=== PATIENT | male | born 1980 | race African-American/Black ===

== ENCOUNTER 2024-08-03 19:14 | Inpatient (IN) | payer OTHER, MEDICAID ==
[~2024-08-03] VITALS: Ht 193 cm; Wt 99.9 kg
[2024-08-03 19:53] LABS: BASOPHILS % 0.3 % (0.0-2.0); EOSINOPHILS % 1.4 % (0.0-5.0); HEMATOCRIT. 32.8 % (42.0-52.0); LYMPHOCYTES % 20.6 % (20.0-50.0); MEAN CORPUSCULAR HEMOGLOBIN 30.8 pg (28.0-32.0); MEAN CORPUSCULAR HGB CONC 33.5 g/dL (31.0-37.0); MEAN PLATELET VOLUME 7.4 fl (7.4-10.4); MONOCYTES % 5.8 % (2.0-8.0); NEUTROPHILS % 71.9 % (40.0-76.0); PLATELET 361 x1000/uL (130-400); RED BLOOD CELL COUNT 3.56 mill/uL (4.7-6.1); RED CELL DISTRIBUTION WIDTH 13.7 % (11.6-14.6); WHITE BLOOD COUNT 8.2 x1000/uL (4.5-11.0)
[2024-08-03 19:54] LABS: CHLORIDE 105 mEq/L (98-107); POTASSIUM 3.7 mEq/L (3.5-5.1); SODIUM 136 mEq/L (136-145)
[2024-08-03 19:55] LABS: CALCIUM 8.8 mg/dL (8.7-10.4); CARBON DIOXIDE 22 mEq/L (21-32)
[2024-08-03 20:00] LABS: UREA NITROGEN BLOOD < 5 mg/dL (9-23)
[2024-08-03 20:26] LABS: GLUCOSE 477 mg/dL (70-105); TROPONIN I HIGH SENSITIVITY < 4 ng/L (3.0-53)
[2024-08-03 23:11] LABS: ALANINE AMINOTRANSFERASE 10 IU/L (10-49); ALBUMIN 3.7 g/dL (3.2-4.8); ASPARTATE AMINOTRANSFERASE 12 IU/L (<34); BILIRUBIN DIRECT < 0.1 mg/dL (<=3.0); BILIRUBIN TOTAL 0.2 mg/dL (0.1-1.0); PROTEIN TOTAL 6.2 g/dL (6.0-8.3)
[2024-08-03] MEDS: HYDROCODONE/ACETAMINOPHEN 5/325MG TABLET PO ONE (23:18)
[2024-08-03] MEDS ORDERED: OCTREOTIDE 1,000 MCG in SODIUM CHLORIDE 0.9% 98 ML IV SCH (23:30)
[2024-08-04 00:16] LABS: PROTHROMBIN TIME 11.2 sec (9.6-11.0)
[2024-08-04] MEDS ORDERED: CLONIDINE 0.1MG TABLET PO PRN (00:45)
[2024-08-04] MEDS: CEFTRIAXONE 1GM/50ML 50 ML IV ONE (00:45)
[2024-08-04] MEDS ORDERED: DEXTROSE 50% WATER 50ML SYRINGE IV PRN (00:45)
[2024-08-04] MEDS ORDERED: IPRATROPIUM/ALBUTEROL 0.5-3(2.5)MG/3ML NEB HHN PRN (00:45)
[2024-08-04] MEDS ORDERED: DOCUSATE SODIUM 100MG CAPSULE PO PRN (00:45)
[2024-08-04] MEDS ORDERED: GUAIFENESIN 200MG/10ML SUGAR FREE UDC PO PRN (00:45)
[2024-08-04] MEDS ORDERED: ACETAMINOPHEN 325MG TABLET PO PRN ×2 (00:45)
[2024-08-04] MEDS ORDERED: ONDANSETRON HCL 4MG/2ML INJ IV PRN (00:45)
[2024-08-04] MEDS ORDERED: LORAZEPAM 2MG/ML INJ IV PRN (00:45)
[2024-08-04] MEDS: ONDANSETRON HCL 4MG/2ML INJ IV ONE (00:46)
[2024-08-04] MEDS: SODIUM CHLORIDE 0.9% 1,000 ML IV ONE ×2 (00:46→15:52)
[2024-08-04] MEDS: MORPHINE SULFATE 2 MG/ML INJ (NOT FOR IM USE) IV ONE (00:47)
[2024-08-04 01:35] LABS: PHOSPHORUS 2.3 mg/dL (2.5-4.9)
[2024-08-04] MEDS: INSULIN LISPRO 100 UNITS/ML SUBCUT ONE (01:49)
[2024-08-04] MEDS: INSULIN LISPRO 100 UNITS/ML SUBCUT NR (02:44)
[2024-08-04] MEDS: HYDROCODONE/ACETAMINOPHEN 5/325MG TABLET PO PRN (02:52)
[2024-08-04 03:31] VITALS: BP 143/104; PULSE 63; RESP 19; TEMP 36.3
[2024-08-04 04:00] VITALS: BP 111/72; PULSE 65; RESP 20; TEMP 36.2; O2SAT 100
[2024-08-04] MEDS: MVI, ADULT NO.1 10 ML, FOLIC ACID 1 MG, THIAMINE HCL 100 MG in SODIUM CHLORIDE 0.9% 1,0... IV SCH (04:45)
[2024-08-04 05:52] LABS: CLARITY URINE CLEAR (CLEAR); COLOR URINE YELLOW (YELLOW); GLUCOSE URINE 3+ (NEGATIVE); KETONES URINE NEGATIVE (NEGATIVE); LEUKOCYTE ESTERASE URINE NEGATIVE (NEGATIVE); NITRITE URINE NEGATIVE (NEGATIVE); OCCULT BLOOD URINE NEGATIVE (NEGATIVE); PROTEIN URINE NEGATIVE (NEGATIVE); SPECIFIC GRAVITY URINE 1.053 (1.005-1.030); UROBILINOGEN URINE 0.2 E.U./dL (0.2-1.0)
[2024-08-04 06:36] LABS: *AMPHETAMINES SCREEN URINE NEGATIVE (NEGATIVE); *BARBITURATES SCREEN URINE NEGATIVE (NEGATIVE); *BENZODIAZEPINES SCREEN URINE PRESUMPTIVE POSITIVE (NEGATIVE); *COCAINE SCREEN URINE NEGATIVE (NEGATIVE); METHADONE URINE SCREEN NEGATIVE (NEGATIVE)
[2024-08-04 06:37] LABS: CANNABINOID URINE SCREEN NEGATIVE (NEGATIVE); ECSTASY MDMA SCREEN URINE NEGATIVE (NEGATIVE); OPIATES URINE SCREEN PRESUMPTIVE POSITIVE (NEGATIVE); PHENCYCLIDINE URINE SCREEN NEGATIVE (NEGATIVE); WBC URINE 0-2 /hpf (0-2)
[2024-08-04 06:38] LABS: BACTERIA URINE NONE SEEN; RBC URINE 0-2 /hpf (0-2); SQUAMOUS EPITHELIAL CELL URINE NONE SEEN /lpf (RARE/1+)
[2024-08-04] MEDS: BLOOD SUGAR DIAGNOSTIC STRIP TEST SCH (06:47)
[2024-08-04 07:25] LABS: HEMATOCRIT 30.9 % (42.0-52.0); HEMOGLOBIN 10.6 g/dL (14.0-18.0); MEAN CORPUSCULAR HEMOGLOBIN 31.6 pg (28.0-32.0); MEAN CORPUSCULAR HGB CONC 34.3 g/dL (31.0-37.0); MEAN CORPUSCULAR VOLUME 92.2 fL (80.0-94.0); PLATELET 337 x1000/uL (130-400); RED BLOOD CELL COUNT 3.35 mill/uL (4.7-6.1); RED CELL DISTRIBUTION WIDTH 13.9 % (11.6-14.6); WHITE BLOOD COUNT 7.8 x1000/uL (4.5-11.0)
[2024-08-04 08:00] VITALS: BP 121/72; PULSE 65; RESP 16; TEMP 36.6; O2SAT 95
[2024-08-04] MEDS: INSULIN LISPRO 100 UNITS/ML SUBCUT SCH (08:10)
[2024-08-04] MEDS: PANTOPRAZOLE SODIUM 40 MG/VIAL IV SCH (11:17)
[2024-08-04 12:00] VITALS: BP 120/81; PULSE 62; RESP 16; TEMP 36.6; O2SAT 95
[2024-08-04] MEDS: MORPHINE SULFATE 2 MG/ML INJ (NOT FOR IM USE) IV NR ×2 (13:02→21:15)
[2024-08-04] MEDS ORDERED: DEXT 5%/0.9% NACL 1,000 ML IV SCH (14:30)
[2024-08-04 16:00] VITALS: BP 119/73; PULSE 63; RESP 16; TEMP 36.6; O2SAT 98
[2024-08-04] MEDS: SUCRALFATE 1G TABLET PO SCH (17:15)
[2024-08-04 20:00] VITALS: BP 117/76; PULSE 64; RESP 20; TEMP 36.3; O2SAT 96
[2024-08-05] VITALS (8 sets, daily range): BP systolic 99–131; BP diastolic 69–85; PULSE 63–93; RESP 17–20; TEMP 36.1–36.4; O2SAT 96–99
[2024-08-05] MEDS: LORAZEPAM 2MG/ML UD SYRINGE IV PRN (01:02)
[2024-08-05 06:56] LABS: CARBON DIOXIDE 27 mEq/L (21-32); CHLORIDE 105 mEq/L (98-107); POTASSIUM 3.7 mEq/L (3.5-5.1); SODIUM 140 mEq/L (136-145)
[2024-08-05 07:00] LABS: CREATININE 0.8 mg/dL (0.6-1.3); IRON 81 ug/dL (65-175)
[2024-08-05 07:01] LABS: BILIRUBIN TOTAL 0.4 mg/dL (0.1-1.0); TRIGLYCERIDE 76 mg/dL (0-150)
[2024-08-05 07:02] LABS: ALANINE AMINOTRANSFERASE < 7 IU/L (10-49); ALBUMIN 3.5 g/dL (3.2-4.8); AMYLASE 95 IU/L (30-118); ASPARTATE AMINOTRANSFERASE 10 IU/L (<34); CHOLESTEROL 115 mg/dL (<200); HDL CHOLESTEROL 43 mg/dL (>55); LDL CHOLESTEROL 59 mg/dL (5-100); THYROID STIMULATING HORMONE 2.45 uIU/mL (0.55-4.78); UREA NITROGEN BLOOD < 5 mg/dL (9-23)
[2024-08-05 07:03] LABS: TOTAL IRON BINDING CAPACITY 276 ug/dl (250-425)
[2024-08-05 07:16] LABS: FOLIC ACID (FOLATE) SERUM > 20.00 ng/mL (>5.38); VITAMIN B12 SERUM 78 pg/mL (211-911)
[2024-08-05 07:17] LABS: FERRITIN 25 ng/mL (22-322)
[2024-08-05 07:24] LABS: BASOPHILS % 0.4 % (0.0-2.0); EOSINOPHILS % 1.7 % (0.0-5.0); HEMOGLOBIN. 11.2 g/dL (14.0-18.0); LYMPHOCYTES % 32.5 % (20.0-50.0); MEAN CORPUSCULAR HEMOGLOBIN 31.3 pg (28.0-32.0); MEAN CORPUSCULAR HGB CONC 34.1 g/dL (31.0-37.0); MEAN CORPUSCULAR VOLUME 91.9 fL (80.0-94.0); MEAN PLATELET VOLUME 8.3 fl (7.4-10.4); MONOCYTES % 4.7 % (2.0-8.0); NEUTROPHILS % 60.7 % (40.0-76.0); PLATELET 328 x1000/uL (130-400); RED BLOOD CELL COUNT 3.59 mill/uL (4.7-6.1); RED CELL DISTRIBUTION WIDTH 13.6 % (11.6-14.6); WHITE BLOOD COUNT 6.7 x1000/uL (4.5-11.0)
[2024-08-05] MEDS ORDERED: NALOXONE HCL 0.4MG/ML VIAL IV PRN (08:30)
[2024-08-05 08:33] LABS: GLUCOSE 282 mg/dL (70-105)
[2024-08-05] MEDS: INSULIN LISPRO 100 UNITS/ML SUBCUT SCH ×2 (08:59→09:00)
[2024-08-05] MEDS: FOLIC ACID 1MG TABLET PO SCH (09:00)
[2024-08-05] MEDS: THIAMINE HCL 100MG TABLET PO SCH (09:02)
[2024-08-05] MEDS ORDERED: AMYL1CAP57 PO (11:54)
[2024-08-05] MEDS ORDERED: METF-416 PO (11:54)
[2024-08-05] MEDS ORDERED: GLIP10TA17 PO (11:55)
[2024-08-05] MEDS ORDERED: OXYC1TAB12 PO (11:55)
[2024-08-05] MEDS ORDERED: PROT40 MT (11:57)
[2024-08-05] MEDS ORDERED: SUCR1TAB MT (11:57)
[2024-08-05] MEDS ORDERED: CYAN1TAB43 MT (11:59)
[2024-08-05] MEDS: CYANOCOBALAMIN 1000MCG/ML VIAL IM SCH (12:59)
[2024-08-05] MEDS: SODIUM CHLORIDE 0.45% 1,000 ML IV ONE (13:00)
[2024-08-05] MEDS: INSULIN GLARGINE 100 UNITS/ML SUBCUT SCH (13:04)
[2024-08-05] MEDS ORDERED: CYAN-50 MT (15:16)
[2024-08-05] MEDS ORDERED: FOLI-43 MT (15:16)
== END 2024-08-05 15:30 | disposition home or self-care (01) | DRG 282 ==
LOC: ER 19:14 → 7WST 23:55 → EDBEDREQ 08-04 00:55 → EDBEDREQTM 08-04 00:55
PROVIDERS: ADMIT Internal Medicine; ATTEND Internal Medicine
DX: K85.90 Acute pancreatitis without necrosis or infection, unspecified (principal); K22.6 Gastro-esophageal laceration-hemorrhage syndrome; K25.4 Chronic or unspecified gastric ulcer with hemorrhage; E11.65 Type 2 diabetes mellitus with hyperglycemia; D64.9 Anemia, unspecified; E53.8 Deficiency of other specified B group vitamins; F10.239 Alcohol dependence with withdrawal, unspecified; K29.71 Gastritis, unspecified, with bleeding; I16.0 Hypertensive urgency; K86.1 Other chronic pancreatitis; N28.9 Disorder of kidney and ureter, unspecified; F17.210 Nicotine dependence, cigarettes, uncomplicated; Z60.2 Problems related to living alone; Y90.9 Presence of alcohol in blood, level not specified; G89.29 Other chronic pain; Z56.0 Unemployment, unspecified; Z79.84 Long term (current) use of oral hypoglycemic drugs; Z83.3 Family history of diabetes mellitus; Z88.9 Allergy status to unspecified drugs, medicaments and biological substances; Z90.49 Acquired absence of other specified parts of digestive tract; Z88.1 Allergy status to other antibiotic agents; Z88.8 Allergy status to other drugs, medicaments and biological substances
CPT/HCPCS: 36415; 71045; 71275; 74174; 76700; 80048; 80053; 80061; 80076; 80305; 81003; 82150; 82607; 82728; 82746; 82962; 83036; 83540; 83550; 83735; 84100; 84443; 84484; 85025; 85027; 85044; 86850; 86900; 93005; 99291; J0696; J1815; J2060; J2270; J2405; J2470; J3411; J3420; J3490; J7030